=== PATIENT | female | born 1995 | race Caucasian/White ===

== ENCOUNTER → 2018-08-09 | Outpatient (CLI) | payer OTHER ==
[2018-08-09 21:12] LABS: HCG, SERUM QUANTITATIVE < 1.0 MIU/ML
[2018-08-09 21:22] LABS: HCG, SERUM QUALITATIVE NEGATIVE (NEGATIVE)
== END ==
LOC: M LAB 20:04
PROVIDERS: ATTEND Physician Assistant Medical
DX: Z32.00 Encounter for pregnancy test, result unknown (principal)

== ENCOUNTER 2018-11-05 18:50 | Emergency (ER) | payer OTHER ==
[~2018-11-05] VITALS: Ht 157.5 cm; Wt 72.7 kg
[2018-11-05 18:51] VITALS: BP 135/69
[2018-11-05] MEDS ORDERED: HYDR50TA70 PO (19:06)
[2018-11-05] MEDS ORDERED: ONDA4TAB6 (19:06)
[2018-11-05 20:13] LABS: BASO % 0.3 % (0.0-1.0); EOS # 0.1 10^3/uL (0.0-0.50); EOS % 0.8 % (0.0-3.0); HEMATOCRIT 40.5 % (36.0-47.0); HEMOGLOBIN 13.7 g/dl (12.0-15.5); LYMPH # 3.3 10^3/uL (1.5-6.5); LYMPH % 31.6 % (24.0-44.0); MEAN CORPUSCULAR HEMOGLOBIN 29.9 pg (27.0-33.0); MEAN CORPUSCULAR HGB CONC 33.8 g/dl (32.0-36.5); MEAN CORPUSCULAR VOLUME 88.4 fl (80.0-96.0); MONO # 0.9 10^3/uL (0.0-0.8); MONO % 8.2 % (0.0-5.0); NEUTROPHILS # 6.1 10^3/uL (1.8-7.7); NEUTROPHILS % 58.8 % (36.0-66.0); PLATELET COUNT, AUTOMATED 271 10^3/uL (150-450); RED BLOOD COUNT 4.58 10^6/uL (4.00-5.40); WHITE BLOOD COUNT 10.4 10^3/uL (4.0-10.0)
[2018-11-05] MEDS ORDERED: KETO10TAB PO (20:42)
[2018-11-05] MEDS ORDERED: KETOROLAC 60 MG/2 ML VIAL (J1885) IM ONE (20:45)
--- NOTE | 2018-11-05 20:58 | REPVR ---
EXAM: US Pelvis Complete, Transabdominal EXAM DATE/TIME: 11/05/2018 8:02 PM CLINICAL HISTORY: 22 years old, female; Pelvic pain; Prior surgery; Surgery date: Post-operative (0-2 days); Surgery type: Patient had iud removed 2 days ago; Additional info: Post procedure bleeding TECHNIQUE: Imaging protocol: Real-time transabdominal pelvic ultrasound with image documentation. Complete exam. COMPARISON: No relevant prior studies available. FINDINGS: Uterus/cervix: Uterus measures 8.2 x 3.1 x 4.6 cm in size. No focal uterine mass. Endometrial stripe appears homogeneous and trilamellar, measuring 3 mm in thickness. Right adnexa: Right ovary measures 1.5 x 2.0 x 1.5 cm in size. No dominant mass or cyst. Normal Doppler flow Left adnexa: Left ovary measures 1.6 x 2.4 x 1.2 cm in size. No dominant mass or cyst. Normal Doppler flow Free fluid: No abnormal volume of free fluid within the pelvis. IMPRESSION: Unremarkable transabdominal and endovaginal pelvic ultrasound. Electronically signed by: Jose Armando Briggs On 11/05/2018 20:57:37 PM
== END 2018-11-05 21:02 | disposition home or self-care (01) ==
LOC: M ED 18:50
DX: N93.8 Other specified abnormal uterine and vaginal bleeding (principal); F17.210 Nicotine dependence, cigarettes, uncomplicated
CPT/HCPCS: 36415; 76830; 76856; 85025; 93976; 96372; 99283; J1885

== ENCOUNTER 2019-01-06 23:19 | Emergency (ER) | payer OTHER ==
[~2019-01-06] VITALS: Ht 157.5 cm; Wt 72.6 kg
[~2019-01-06 23:19] MED LIST: HYDR50TA70 PO; KETO10TAB PO; ONDA4TAB6
[2019-01-07] MEDS ORDERED: GI COCKTAIL 50ML BTL(HYOSCYAMINE/MAALOX/LIDOCAINE VISCOUS)(1:3:1) PO ONE (00:30)
[2019-01-07 00:34] LABS: BASO % 0.4 % (0.0-1.0); EOS # 0.2 10^3/uL (0.0-0.5); EOS % 1.8 % (0.0-3.0); HEMATOCRIT 40.3 % (36.0-47.0); HEMOGLOBIN 13.7 g/dl (12.0-15.5); LYMPH % 38.4 % (24.0-44.0); MEAN CORPUSCULAR HEMOGLOBIN 29.5 pg (27.0-33.0); MEAN CORPUSCULAR VOLUME 86.7 fl (80.0-96.0); MONO # 0.8 10^3/uL (0.0-0.8); MONO % 7.7 % (0.0-5.0); NEUTROPHILS # 5.4 10^3/uL (1.5-8.5); NEUTROPHILS % 51.5 % (36.0-66.0); PLATELET COUNT, AUTOMATED 262 10^3/uL (150-450); RED BLOOD COUNT 4.65 10^6/uL (4.00-5.40); WHITE BLOOD COUNT 10.5 10^3/uL (4.0-10.0)
[2019-01-07 00:47] LABS: ABG BASE EXCESS -4.2 (-2.0-2.0); ABG HCO3 19.8 MEQ/L (22.0-26.0); ABG O2 SATURATION 96.4 % (95.0-99.0); ABG PARTIAL PRESSURE CO2 33.3 mmHg (35.0-45.0); ABG PARTIAL PRESSURE O2 87.2 mmHg (75.0-100.0); ABG TOTAL CO2 20.8 MEQ/L (22.0-29.0); ABG pH (ARTERIAL) 7.392 UNITS (7.350-7.450)
[2019-01-07 00:51] LABS: APPEARANCE, URINE HAZY (CLEAR); BACTERIA, URINE AUTO 2+ (NEGATIVE); BILIRUBIN, URINE AUTO NEGATIVE (NEGATIVE); BLOOD, URINE BLOOD NEGATIVE (NEGATIVE); COLOR, URINE YELLOW (YELLOW); GLUCOSE, URINE (UA) AUTO NEGATIVE (NEGATIVE); KETONE, URINE AUTO NEGATIVE (NEGATIVE); LEUKOCYTE ESTERASE, URINE AUTO NEGATIVE (NEGATIVE); MUCUS, URINE SMALL (NEGATIVE); NITRITE, URINE AUTO NEGATIVE (NEGATIVE); PROTEIN, URINE AUTO NEGATIVE (NEGATIVE); RBC, URINE AUTO 0 /HPF (0-3); SPECIFIC GRAVITY URINE AUTO 1.012 (1.002-1.035); SQUAMOUS EPITHELIAL CELL UR AU 0 /HPF (0-6); UROBILINOGEN, URINE AUTO 0.2 mg/dL (0.0-2.0); WBC, URINE AUTO 2 /HPF (0-3)
[2019-01-07 01:07] LABS: ALBUMIN 3.6 GM/DL (3.2-5.2); ALT/SGPT 20 U/L (12-78); BILIRUBIN,DIRECT < 0.1 MG/DL (0.0-0.2); BILIRUBIN,TOTAL 0.1 MG/DL (0.2-1.0); BLOOD UREA NITROGEN 13 MG/DL (7-18); CALCIUM LEVEL 8.5 MG/DL (8.5-10.1); CARBON DIOXIDE LEVEL 27 MEQ/L (21-32); CHLORIDE LEVEL 108 MEQ/L (98-107); CREATININE FOR GFR 0.65 MG/DL (0.55-1.30); GLOMERULAR FILTRATION RATE > 60.0 (>60); GLUCOSE, FASTING 97 MG/DL (70-100); POTASSIUM SERUM 3.7 MEQ/L (3.5-5.1); SODIUM LEVEL 141 MEQ/L (136-145); TOTAL PROTEIN 6.6 GM/DL (6.4-8.2)
[2019-01-07 02:15] VITALS: BP 109/62
--- NOTE | 2019-01-08 11:42 | ECGEPIP ---
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
== END 2019-01-07 02:34 | disposition home or self-care (01) ==
LOC: M ED 23:19
DX: O99.611 Diseases of the digestive system complicating pregnancy, first trimester (principal); Z3A.01 Less than 8 weeks gestation of pregnancy; Z79.899 Other long term (current) drug therapy

== ENCOUNTER 2019-02-10 09:44 | Emergency (ER) | payer OTHER ==
[~2019-02-10] VITALS: Ht 157.5 cm; Wt 72.8 kg
[2019-02-10] MEDS ORDERED: IBUP-1114 PO (09:50)
[2019-02-10 10:30] LABS: BASO % 0.5 % (0.0-1.0); EOS # 0.1 10^3/uL (0.0-0.5); EOS % 1.3 % (0.0-3.0); HEMATOCRIT 43.8 % (36.0-47.0); HEMOGLOBIN 14.4 g/dl (12.0-15.5); LYMPH # 1.6 10^3/uL (1.5-5.0); LYMPH % 27.2 % (24.0-44.0); MEAN CORPUSCULAR HEMOGLOBIN 29.5 pg (27.0-33.0); MEAN CORPUSCULAR HGB CONC 32.9 g/dl (32.0-36.5); MEAN CORPUSCULAR VOLUME 89.8 fl (80.0-96.0); MONO # 0.5 10^3/uL (0.0-0.8); MONO % 7.5 % (0.0-5.0); NEUTROPHILS # 3.8 10^3/uL (1.5-8.5); NEUTROPHILS % 63.3 % (36.0-66.0); PLATELET COUNT, AUTOMATED 242 10^3/uL (150-450); RED BLOOD COUNT 4.88 10^6/uL (4.00-5.40)
[2019-02-10 11:10] LABS: BLOOD UREA NITROGEN 7 MG/DL (7-18); CALCIUM LEVEL 9.2 MG/DL (8.5-10.1); CARBON DIOXIDE LEVEL 26 MEQ/L (21-32); CHLORIDE LEVEL 110 MEQ/L (98-107); CREATININE FOR GFR 0.76 MG/DL (0.55-1.30); GLOMERULAR FILTRATION RATE > 60.0 (>60); GLUCOSE, FASTING 101 MG/DL (70-100); HCG, SERUM QUANTITATIVE 2979 MIU/ML; POTASSIUM SERUM 3.9 MEQ/L (3.5-5.1); SODIUM LEVEL 142 MEQ/L (136-145)
--- NOTE | 2019-02-10 11:48 | REP ---
Clinical: Recent history of miscarriage. Technique: Transabdominal and transvaginal first trimester obstetrical ultrasound. Findings: Anteverted uterus measures 8.6 x 4.5 x 5.9 cm and an empty gestational sac is identified with mean sac diameter of 16.7 mm corresponding to 6 weeks 4 days gestational age. No pole or yolk sac noted. Maternal ovaries are normal in appearance and vascularity without torsion. 1.6 cm corpus luteal cyst in the left ovary noted. No pelvic free fluid. Impression: Findings are compatible with the given history of recent /blighted ovum. Correlation with serial HCG levels and follow-up ultrasound may be warranted. Ectopic unlikely but cannot be excluded from differential. Electronically Signed by Adithya Laurent MD 02/10/2019 11:40 A
[2019-02-10] MEDS ORDERED: NS 1,000 ML IV ONE (12:30)
[2019-02-10 15:45] VITALS: BP 132/66
[2019-02-10] MEDS ORDERED: PREN29TA4 PO (17:21)
[2019-02-18] MEDS ORDERED: FLAG500T PO (00:42)
== END 2019-02-10 15:56 | disposition home or self-care (01) ==
LOC: M ED 09:44
DX: O03.4 Incomplete spontaneous abortion without complication (principal); R10.9 Unspecified abdominal pain; O34.80 Maternal care for other abnormalities of pelvic organs, unspecified trimester; Z87.448 Personal history of other diseases of urinary system; Z3A.01 Less than 8 weeks gestation of pregnancy; Z79.899 Other long term (current) drug therapy; O02.1 Missed abortion
CPT/HCPCS: 76801; 76817; 80048; 81001; 84702; 85025; 86850; 86900; 86901; 88305; 93976; 96360; 96361; 99283; J1100; J1885; J2250; J2405; J3010

== ENCOUNTER 2019-02-10 15:52 | Day surgery (SDC) | payer OTHER ==
[~2019-02-10] VITALS: Ht 157.5 cm; Wt 71.8 kg
[~2019-02-10 15:52] MED LIST changes: +IBUP-1114 PO
[2019-02-10] MEDS ORDERED: DOXYCYCLINE HYCLATE 100 MG in D5W MINI-BAG PLUS 100 ML IV ONE (16:45)
[2019-02-10] MEDS ORDERED: PREN29TA4 PO (17:21)
[2019-02-10] MEDS ORDERED: dexameTHASONE 4 MG/ML 1ML VIAL (J1100) As Ordered ONE (18:37)
[2019-02-10] MEDS ORDERED: LIDOCAINE 2% INJ 100 MG/5 ML SDV (FOR ANES.) As Ordered ONE (18:37)
[2019-02-10] MEDS ORDERED: KETOROLAC 60 MG/2 ML VIAL (J1885) As Ordered ONE (18:37)
[2019-02-10] MEDS ORDERED: PROPOFOL 200 MG/20 ML VIAL As Ordered ONE ×2 (18:37→19:41)
[2019-02-10] MEDS ORDERED: ONDANSETRON 4MG/2ML VIAL (J2405) As Ordered ONE (18:37)
[2019-02-10] MEDS ORDERED: fentaNYL 100 MCG/2 ML INJECTION (J3010) As Ordered ONE ×2 (18:41→20:03)
[2019-02-10] MEDS ORDERED: MIDAZOLAM INJ 2 MG/2 ML VIAL (J2250) As Ordered ONE (18:41)
[2019-02-10] MEDS ORDERED: LIDOCAINE 1% SDV INJ 30 ML VIAL As Ordered ONE (19:18)
[2019-02-10] MEDS ORDERED: SILVER NITRATE APPLICATOR As Ordered ONE (19:18)
[2019-02-10] MEDS ORDERED: LR 1,000 ML IV SCH (20:45)
[2019-02-10] MEDS ORDERED: fentaNYL 100 MCG/2 ML INJECTION (J3010) IV PRN (20:45)
[2019-02-10] MEDS ORDERED: PERCOCET 5MG/325MG TAB PO PRN (20:45)
[2019-02-10] MEDS ORDERED: ONDANSETRON 4MG/2ML VIAL (J2405) IV PRN (20:45)
[2019-02-10 22:55] VITALS: BP 101/56
--- NOTE | 2019-02-13 08:46 | RO ---
DATE OF PROCEDURE: 02/10/2019 PREOPERATIVE DIAGNOSIS: Missed . POSTOPERATIVE DIAGNOSIS: Missed . OPERATION PERFORMED: Suction dilation and curettage. SURGEON: Dr. Darling Miranda BACK TENDER INSULATION BOARD: None. ANESTHESIA: General. CLINICAL SERVICE: Gynecology. INDICATION FOR OPERATION: Jacque is a 23-year-old, (G) 2, now para (P) 0-0-2-0, who presented to the office for a dating ultrasound and was found to have only a gestational sac, which was not as progressed as it should have been for her stated gestational age. She was brought back to the office after having serial human chorionic gonadotropin (hCG) values performed, and her hCG value was noted to fall from 11,000 to 6000. She was counseled on options for treatment of miscarriage, and she desired to proceed with a dilation and curettage. Notably, she presented this morning to the emergency room (ER) with back pain and they repeated the ultrasound; there was still only a gestational sac within the uterus and her quantitative is now 2900. She has not yet had any bleeding. MATERIAL FORWARDED TO THE LAB FOR EXAMINATION: Uterine contents and curettings. DESCRIPTION OF FINDINGS: 8-week size anteverted uterus. Cervix closed. No adnexal masses. Moderate amount of blood and tissue extracted from the uterus. INFECTION CLASSIFICATION: II. ESTIMATED BLOOD LOSS: 50 mL. IV FLUIDS: 400 mL of lactated Ringer's. URINE OUTPUT: Not measured. DESCRIPTION OF OPERATION: After obtaining informed consent, the patient was taken to the operating room where she underwent general anesthesia. She was placed in low lithotomy position, and the perineum and vagina were prepped and draped in sterile fashion. She received 100 mg of IV doxycycline prior to the procedure. The bivalve speculum was inserted, and the anterior segment of the cervix was grasped with a single-tooth tenaculum. Uterus sounded to 10 cm. Cervix was sequentially dilated using Ryder dilators. An 8 mm suction curette was introduced to the fundus of the uterus. Suction was activated, and three passes of suction curettage were used to remove the intrauterine contents. A sharp curette was then used, and good cry was noted in 360 degrees. Two final passes with the suction curette ensured removal of all intrauterine contents. Hemostasis was noted after the procedure. Tenaculum was removed, and I performed bimanual massage, again noting good hemostasis. Silver nitrate was applied with hemostasis then noted at the tenaculum sites. The bivalve speculum was removed, and patient was transferred to the recovery room in good condition. All counts were correct times two. Edited: juan 02/15/2019 [id number]
== END 2019-02-10 23:10 | disposition home or self-care (01) ==
LOC: M SDC 15:52
PROVIDERS: ATTEND Obstetrics & Gynecology
DX: O02.1 Missed abortion (principal); Z79.899 Other long term (current) drug therapy

== ENCOUNTER 2019-07-20 20:59 | Emergency (ER) | payer OTHER ==
[~2019-07-20] VITALS: Ht 154.9 cm; Wt 69.9 kg
[~2019-07-20 20:59] MED LIST changes: +FLAG500T PO; +PREN29TA4 PO
[2019-07-20] MEDS ORDERED: CLAR10CA3 PO (21:07)
[2019-07-20] MEDS ORDERED: ACETAMINOPHEN 325 MG TAB PO ONE (21:45)
[2019-07-20 22:36] VITALS: BP 120/65
--- NOTE | 2019-07-21 01:31 | REP ---
Clinical: Trauma. Fall. Technique: AP, lateral right knee. Findings: The osseous structures and joint spaces are intact and normal. There is no evidence for acute fracture or dislocation. Surrounding soft tissues are unremarkable. No subcutaneous emphysema or radiodense foreign body. Impression: No acute fracture or dislocation. Electronically Signed by Adithya Laurent MD 07/21/2019 01:24 A
== END 2019-07-20 22:48 | disposition home or self-care (01) ==
LOC: M ED 20:59
DX: O9A.212 Injury, poisoning and certain other consequences of external causes complicating pregnancy, second trimester (principal); S80.01XA Contusion of right knee, initial encounter; W01.0XXA Fall on same level from slipping, tripping and stumbling without subsequent striking against object, initial encounter; Y92.89 Other specified places as the place of occurrence of the external cause; Z3A.18 18 weeks gestation of pregnancy; Z79.899 Other long term (current) drug therapy